=== PATIENT | male | born 1955 | race Asian ===

== ENCOUNTER 2021-10-25 11:41 | Emergency (ER) | payer SELFPAY ==
[~2021-10-25] VITALS: Ht 167.6 cm; Wt 62.0 kg
[2021-10-25 11:54] VITALS: BP 131/88
[2021-10-25 13:46] LABS: CLARITY URINE CLEAR (CLEAR); COLOR URINE YELLOW (YELLOW); KETONES URINE NEGATIVE (NEGATIVE); LEUKOCYTE ESTERASE URINE NEGATIVE (NEGATIVE); NITRITE URINE NEGATIVE (NEGATIVE); OCCULT BLOOD URINE NEGATIVE (NEGATIVE); PROTEIN URINE NEGATIVE (NEGATIVE); SPECIFIC GRAVITY URINE 1.006 (1.005-1.030); UROBILINOGEN URINE 0.2 E.U./dL (0.2-1.0)
[2021-10-25 14:56] LABS: CHLORIDE 105 mEq/L (98-107)
== END 2021-10-25 15:26 | disposition home or self-care (01) ==
LOC: ER 11:41
DX: R82.998 Other abnormal findings in urine (principal); R35.89 Other polyuria; R73.9 Hyperglycemia, unspecified; I10 Essential (primary) hypertension; E78.00 Pure hypercholesterolemia, unspecified
CPT/HCPCS: 36415; 80048; 81003; 82962; 99283